=== PATIENT | female | born 1955 | race Caucasian/White ===

== ENCOUNTER 2021-03-18 11:58 | Emergency (ER) | payer MEDICARE ==
[~2021-03-18] VITALS: Ht 152.4 cm; Wt 97.5 kg
[~2021-03-18 11:58] MED LIST: EC-NAPROSYN500 MG PO; METOPROLOL TART25 MG PO
[2021-03-18] MEDS ORDERED: MELOXICAM7.5 MG PO (12:12)
[2021-03-18] MEDS ORDERED: KAPSPARGO SPRI100 MG PO (12:12)
[2021-03-18] MEDS ORDERED: HYDROCHLOROTHIA25 MG PO (12:12)
[2021-03-18] MEDS ORDERED: LIPITOR20 MG GT (12:13)
[2021-03-18] MEDS ORDERED: OSTEO BI-FLEX1 EAC2 PO (12:14)
[2021-03-18] MEDS ORDERED: VITAMIN D3125 MC3 PO (12:14)
[2021-03-18] MEDS ORDERED: HYDROCODON-ACE1 EA10 PO (15:22)
[2021-06-02] MEDS ORDERED: HYDROCHLOROTHIA25 MG PO (16:06)
[2021-06-02] MEDS ORDERED: ESCITALOPRAM OX10 MG PO (16:06)
[2021-06-02] MEDS ORDERED: BOSWELLIA SERRAT1 GM MISC (16:08)
[2021-06-02] MEDS ORDERED: OSTEO BI-FLEX1 EAC2 PO (16:11)
[2021-06-02] MEDS ORDERED: VITAMIN D3125 MCG PO (16:11)
== END 2021-03-18 15:29 | disposition home or self-care (01) ==
LOC: ED 11:58
DX: M54.41 Lumbago with sciatica, right side (principal); I10 Essential (primary) hypertension; Z79.899 Other long term (current) drug therapy
CPT/HCPCS: 96372; 99283; J1885

== ENCOUNTER 2021-06-03 10:19 | Day surgery (SDC) | payer MEDICARE ==
[~2021-06-03] VITALS: Ht 152.4 cm; Wt 105.9 kg
[~2021-06-03 10:19] MED LIST changes: +BOSWELLIA SERRAT1 GM MISC; +ESCITALOPRAM OX10 MG PO; +HYDROCHLOROTHIA25 MG PO; +HYDROCODON-ACE1 EA10 PO; +KAPSPARGO SPRI100 MG PO; +LIPITOR20 MG GT; +MELOXICAM7.5 MG PO; +OSTEO BI-FLEX1 EAC2 PO; +VITAMIN D3125 MC3 PO; +VITAMIN D3125 MCG PO
[2021-06-03] MEDS ORDERED: GLUCOSAMINE &1 EACH PO (10:47)
--- NOTE | 2021-06-03 12:28 | NUR ---
06/03/21 1228 Katerine Oswald 1225 PT ARRIVED TO PACU ON 3L VIA MASK, PT WAKES EASILY TO VERBAL STIMULI AND DENIES PAIN AND NAUSEA. VSS. PT FALLS EASILY BACK TO SLEEP AND SNORING NOTED.
--- NOTE | 2021-06-05 14:59 | PATH ---
[facility] [address] [place] [address] Signed SPECIMEN(S): A BONE MARROW - CORE SPECIMEN(S): B BONE MARROW - ASPIRATION SPECIMEN(S): C FLOW CYTOMETRY, BM EDTA ASP CLINICAL HISTORY: Bone marrow biopsy. 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 See attached. C85.80 (other specified types of non-Hodgkin lymphoma, unspecified site) DIAGNOSIS SUMMARY: A. Peripheral blood - Unremarkable. - No atypical lymphocytes identified. B. Bone marrow biopsy and aspiration: - Normocellular marrow, 35-40%, with 1% blasts. - Trilineage hematopoiesis with no significant dyspoiesis. - No lymphoproliferative neoplasm or other malignancy noted. - Increased marrow iron stores by Prussian Blue stain. DIAGNOSTIC COMMENT: No lymphoproliferative neoplasm or other malignancy is identified by flow cytometry. JLP:C2NR PERIPHERAL BLOOD: HEMOGRAM (06/03/2021): WBC 7.3 K/ul, RBC 3.91 M/ul, HGB 12.2 g/dl, HCT 35.7%, MCV 93.9 fl, MCH 31.3 pg, MCHC 33.3 g/dl, RDW 12.7%, PLT 199 K/ul. AUTOMATED DIFFERENTIAL COUNT: Neutrophils 66.3%, lymphocytes 26.3%, monocytes 4.6%, eosinophils 1.5%, basophils 1.3%. The red blood cells are normocytic and normochromic with minimal anisopoikilocytosis. The neutrophils are unremarkable. Lymphocytes are composed of small mature appearing forms. Platelets appear normal in number and morphology with no platelet clumping or RBC microangiopathic effect identified. No blasts are identified. BONE MARROW: ASPIRATE SMEARS/TOUCH IMPRINT: The aspirate smears are adequate for evaluation. Erythroid precursors appear mildly increased in numbers but show adequate maturation with essentially normal morphology. The myeloid precursors show full maturation with unremarkable morphology. There is no increase in blasts. Megakaryocytes are identified PATIENT NAME: FAYE SWIFT PATHOLOGY DATE OF : 51 REPORT #: [id number] PHYSICIAN: VICKY PATHOLOGY PCP: NO PRIMARY CARE PHYSICIAN REPORT IS CONFIDENTIAL AND NOT TO BE RELEASED WITHOUT AUTHORIZATION [facility] [address] [place], [place] [address] Signed with a normal morphology. BONE MARROW DIFFERENTIAL COUNT (300 cells): Blasts 1%, promyelocytes 1%, myelocytes 8%, metamyelocytes/bands/segs 40%, erythroid precursors 41%, lymphocytes 5%, monocytes 1%, eosinophils 3%, plasma cells less than 1%. M:E ratio: 1.3:1 BONE MARROW CORE BIOPSY/ASPIRATE CLOT/CELL BLOCK: The aspirate clot section and the core biopsy are adequate for evaluation. The core biopsy demonstrates unremarkable trabecular bone. The cellularity is normal for age, estimated at 35-40%. The erythroid precursors are mildly increased in numbers with essentially unremarkable maturation. The myeloid precursors are unremarkable with no significant dyspoiesis. Blasts are not increased. Megakaryocytes appear normal in number and in morphology. No granulomas, atypical lymphoid aggregates or foreign malignant cells are detected. SPECIAL STAINS (with adequate controls): - iron (aspirate smear): Increased marrow iron stores by Prussian Blue staining. No ring sideroblasts identified. - iron (aspirate clot): Focal positive. IMMUNOHISTOCHEMISTRY STAINS (performed on block A1 with adequate controls). - PAX5: 1%, no atypical aggregates. - CD3: 5%, no atypical aggregates. FLOW CYTOMETRY: Bone marrow, flow cytometry: - No diagnostic abnormal populations are identified by flow cytometry. - See Comment. COMMENT: The majority of the gated lymphocytes are T-cells with a normal marking pattern. The B-cells are unremarkable with no light chain restriction or aberrant marking. Blasts are not increased. No aberrant marking is detected in the myeloid or monocyte gate areas. Plasma cells are not increased. Correlation with histologic findings is suggested to exclude disorders that can have normal flow cytometry findings. FLOW CYTOMETRY ANALYSIS: FLOW DIFFERENTIAL (% Total CD45 vs. SSC gating): Myeloid 82%; Lymphoid 7%; Monocyte 2%; Dim CD45/Blast: 1.5%. Cell Count: 5.8 x 10*3/uL. POPULATION ANALYSIS: BLASTS: Analysis of the dim CD45 gate demonstrates 1.5% myeloblasts by CD34/CD117. 0.8% hematogones are detected. PATIENT NAME: FAYE SWIFT PATHOLOGY DATE OF : 51 REPORT #: [id number] PHYSICIAN: VICKY PATHOLOGY PCP: NO PRIMARY CARE PHYSICIAN REPORT IS CONFIDENTIAL AND NOT TO BE RELEASED WITHOUT AUTHORIZATION [facility] [address] [place], [place] [address] Signed LYMPHOID CELLS: The lymphocyte gate comprises 7% of total events and includes 86% T-cells with a CD4:CD8 ratio of 2.9:1 and normal lockhart T-cell antigen expression. 4% of lymphocytes are polyclonal B-cells with a kappa:lambda ratio of 1.5:1. The remainders are NK-cells. MYELOID CELLS: The myeloid population comprises 82% of the total events. No aberrant immunophenotypic expression is detected. MONOCYTES: The monocyte population comprises 2% of the total events. Monocytes are not increased. No aberrant immunophenotypic expression is detected. PLASMA CELLS: 0.4% plasma cells are detected in the screening gate neg-dimCD45/CD38. Plasma cells are CD45 dim and positive for CD19. ANTIBODIES USED: KAPPA, LAMBDA, CD20, CD10, CD19, CD23, CD38, FMC7, CD16, CD56, CD8, CD5, CD2, CD4, CD7, CD3, CD14, CD33, CD13, HLADR, CD34, CD117, CD15, CD45. TOTAL ANTIBODIES USED: 24. JNB FINAL DIAGNOSIS PERFORMED BY: Alexandre Bae MD, Jun 04 2021 3:26PM GROSS DESCRIPTION: Two specimens are received in two containers, labeled "RM." A. The specimen, labeled "RM, core," is received in formalin and consists of one cylindrical bone core fragment measuring 0.3 cm in diameter and 2.4 cm in length. The specimen is entirely submitted in cassette (A1) following decalcification in Immunocal. B. The specimen, labeled "RM, clot," is received in formalin and consists of thickened clot material measuring 1.8 x 1.2 x 0.5 cm in aggregate. The specimen is filtered and entirely submitted in cassette (B1). Bone marrow inventory also includes: Two peripheral smears, one EDTA tube bone marrow, two heparin tubes, ten clear slides. AT (under the direct supervision of a pathologist) The Gross Description was prepared using a voice recognition system. The report was reviewed for accuracy; however, sound-alike word errors, addition and/or deletions may occur. If there is any question about this report, please contact Client Services. ADDITIONAL NOTES: Immunohistochemical and/or in situ hybridization studies were performed on this case with the appropriate positive controls that react as expected. This test was developed and its performance PATIENT NAME: FAYE SWIFT PATHOLOGY DATE OF : 51 REPORT #: [id number] PHYSICIAN: VICKY PATHOLOGY PCP: NO PRIMARY CARE PHYSICIAN REPORT IS CONFIDENTIAL AND NOT TO BE RELEASED WITHOUT AUTHORIZATION [facility] [address] [place], [place] [address] Signed characteristics determined by [facility]. It has not been cleared or approved by the U.S. Food and Drug Administration. The FDA has determined that such clearance or approval is not necessary. This test is used for clinical purposes. It should not be regarded as investigational or for research. [facility] is certified under the Clinical Laboratory Improvement Amendments of 1988 (CLIA) as qualified to perform high complexity clinical laboratory testing. This assay has not been validated for specimens that have been decalcified. In this case, certain antibodies were performed by both immunohistochemistry and flow cytometry analysis because flow cytometry analysis did not fully explain all the light microscopic findings. Immunohistochemistry aided in the analysis. Both methods are deemed medically necessary in this case. This test was developed and its performance characteristics determined by [facility]. It has not been cleared or approved by the US Food and Drug Administration. The FDA does not require this test to go through premarket FDA review. This test is used for clinical purposes. It should not be regarded as investigational or for research. This laboratory is certified under the Clinical Laboratory Improvement Amendments (CLIA) as qualified to perform high complexity clinical laboratory testing. PERFORMING LABORATORY: The technical component was performed by [facility], [address] [place] [address] ([employer] Dr[employer] Operator: Carlos Dutton D.O.; CLIA#: [id number]). [facility], [address] [place] [address]. A portion of the technical component was performed by [facility], [address] [place] [address] ([employer] Operator: Catherine Lau MD; CLIA# [id number]). A portion of the technical component was performed by [facility], [address] [place] [address] ([employer] Operator: Carlos Dutton D.O.; CLIA#: [id number]). Professional interpretation was performed by [facility], [facility], [address] [place] [address]. IMAGES: A: [id number] A: [id number] PATIENT NAME: FAYE SWIFT PATHOLOGY DATE OF : 51 REPORT #: [id number] PHYSICIAN: VICKY PATHOLOGY PCP: NO PRIMARY CARE PHYSICIAN REPORT IS CONFIDENTIAL AND NOT TO BE RELEASED WITHOUT AUTHORIZATION [address] [place] [address] Signed Diagnostician: Alexandre Bae MD Pathologist Electronically Signed 06/05/2021 Copies: ~ PATIENT NAME: FAYE SWIFT PATHOLOGY DATE OF : 51 REPORT #: [id number] PHYSICIAN: VICKY WILKINSON PCP: NO PRIMARY CARE PHYSICIAN REPORT IS CONFIDENTIAL AND NOT TO BE RELEASED WITHOUT AUTHORIZATION
== END 2021-06-03 13:10 | disposition home or self-care (01) ==
LOC: OPS 10:19 → DS 10:21 → OPS 12:00 → DS 12:00 → OPS 13:10
PROVIDERS: ATTEND Specialist
PROC: 07DR3ZX Extraction of Iliac Bone Marrow, Percutaneous Approach, Diagnostic (ICD-10-PCS; principal; 2021-06-03 12:00)
DX: C85.80 Other specified types of non-Hodgkin lymphoma, unspecified site (principal); E78.5 Hyperlipidemia, unspecified; Z20.822 Contact with and (suspected) exposure to COVID-19
CPT/HCPCS: 80053; 83615; 88184; 88185; 88305; 88311; 88313; 88341; 88342; 99153; G0500; J2250; J3010; J7121

== ENCOUNTER 2021-10-08 12:33 | Day surgery (SDC) | payer MEDICARE ==
[~2021-10-08] VITALS: Ht 154.9 cm; Wt 108.0 kg
[~2021-10-08 12:33] MED LIST changes: +GLUCOSAMINE &1 EACH PO
--- NOTE | 2021-10-08 14:39 | NUR ---
warm blanket on and update given. iv patent.
--- NOTE | 2021-10-08 16:20 | NUR ---
10/08/21 1620 Talisha Gao 1613- PT ARRIVES TO PACU AWAKE AND TALKING. PT REPORTS ABD CRAMPING THAT SHE RATES A 5/10. PT ENCOURAGED TO PASS FLATUS TO HELP WITH THIS PAIN. PT STATES UNDERSTANDING. PT DENIES ANY NAUSEA. RESP EVEN AND UNLABORED. OXYGEN SAT MID TO HIGH 90'S ON RA.
--- NOTE | 2021-10-10 15:08 | OR ---
[facility] [address] [place], [place] [address] Signed DATE OF OPERATION: 10/08/2021 SURGEON: Cristal Deleon MD PREOPERATIVE DIAGNOSES: 1. 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 2. Diarrhea, unknown etiology. POSTOPERATIVE DIAGNOSES: 1. Mild diffuse gastritis. No evidence of ulceration. No strict evidence of lymphoma. 2. Mild chronic inflammation of sigmoid and rectum. There was a small polyp at 40 cm (excised). PROCEDURES: 1. Esophagogastroduodenoscopy with biopsy. 2. Total colonoscopy to the cecum with biopsies of rectosigmoid and rectum and cold morcellation, excision of polyp at 40 cm. ANESTHESIA: Intravenous sedation, fentanyl 150 mcg and Versed 6 mg total. INDICATION: This 66-year-old white woman is a patient Dr. Barbour and also Dr. Santizo. She has undergone treatment for marginal cell lymphoma including Rituxan therapy. She is said to have had a gastric lymphoma in the past. She has left upper abdominal pain of uncertain etiology. She has had no hematemesis or blood per rectum. She does have diarrhea, however, as well again without signs of blood. She is admitted at this time to undergo upper endoscopy and colonoscopy to better characterize the problem. FINDINGS: Upper endoscopy dominantly showed a diffuse chronic gastritis. There was no sign of ulceration or neoplasm proper. On colonoscopy, the prep was good. There was dull appearing chronic inflamed sigmoid and rectum, but no acute inflammation and no ulceration or stricture. She did have one small polyp at 40 cm which was excised with cold morcellation technique. DESCRIPTION OF PROCEDURE: The patient was brought to the endoscopy suite and given topical Hurricaine spray hypopharyngeal anesthesia and placed in the lateral decubitus position, given Electronically Signed By: CRISTAL DELEON MD 10/10/21 1508 PATIENT NAME: FAYE SWIFT OPERATIVE REPORT DATE OF : 51 REPORT #: [id number] PHYSICIAN: CRISTAL DELEON MD PCP: KAREN BARBOUR MD REPORT IS CONFIDENTIAL AND NOT TO BE RELEASED WITHOUT AUTHORIZATION [facility] [address] [place], [place] [address] Signed intravenous sedation to the point of slurred speech with full cardiopulmonary monitoring. A bite block was placed. An Olympus video upper endoscope was passed in the hypopharynx. The vocal cords appeared normal. Scope was advanced to the esophagus and into the stomach and ultimately into the duodenum. The duodenum was normal. Biopsies were obtained to assess for celiac disease. The scope was withdrawn and the pylorus was found to be normal. The antrum had chronic inflammatory change. Biopsies were obtained for both NAOMI and pathologic testing. Retroflexed view of the scope showed no sign of dominant hiatal hernia at this time. Proximal gastritis was noted. Narrow band imaging confirmed this quite markedly. Biopsies were taken there as well and CLOtest biopsy was also obtained. Notably, the CLOtest is negative still 30 minutes post procedure. The scope was straightened and withdrawn to the distal esophagus which was biopsied and withdrawn further and the midesophagus biopsied. Further withdrawal showed no other abnormalities. There are certainly no Ramríez's epithelium, stricture, neoplasm or varices. A plan was then made for colonoscopy. Digital rectal examination was undertaken. Additional sedation was given. An Olympus video colonoscope was passed in the rectum and manipulated throughout the colon ultimately intubating the cecum itself. The ileocecal valve and appendiceal orifice were normal. Scope was withdrawn from that point and examination showed no sign of abnormality until approximately 40 cm from the anal verge, where a very small adenomatous appearing polyp was noted, this was excised with a single biopsy morcellating device. Further withdrawal of the scope showed the dull vascular free appearance of the sigmoid and left colon. Biopsies were obtained of both the sigmoid and the rectum to assess for chronic colitis. Retroflexed view showed no other findings of concern. The scope was removed and the patient was taken to the recovery room in good condition. CONCLUDING DIAGNOSES: 1. Diffuse gastritis. 2. Small polyp of colon and mild chronic sigmoid and rectal inflammation. PLAN: We will prescribe PPI medication, Prilosec as well as Carafate and see the patient back in 4 to 6 weeks. If she has problems in the meantime, she will let me know. She will return also to the ongoing care of Dr. Karen Barbour and Dr. Raymond Santizo. Electronically Signed By: CRISTAL DELEON MD 10/10/21 1508 PATIENT NAME: FAYE SWIFT OPERATIVE REPORT DATE OF : 51 REPORT #: [id number] PHYSICIAN: CRISTAL DELEON MD PCP: KAREN BARBOUR MD REPORT IS CONFIDENTIAL AND NOT TO BE RELEASED WITHOUT AUTHORIZATION [address] [address] Signed Cristal Deleon MD JM/MODL /[id number] cc: MD Dr. Karen Rajan Copies: RAYMOND SANTIZO MD ~ Electronically Signed By: CRISTAL DELEON MD 10/10/21 1508 PATIENT NAME: FAYE SWIFT OPERATIVE REPORT DATE OF : 51 REPORT #: [id number] PHYSICIAN: CRISTAL DELEON MD PCP: KAREN BARBOUR MD REPORT IS CONFIDENTIAL AND NOT TO BE RELEASED WITHOUT AUTHORIZATION
--- NOTE | 2021-10-13 13:15 | PATH ---
[facility] [address] [place], [place] [address] Signed THIS IS AN ADDENDUM REPORT SPECIMEN(S): A POLYP AT 40 CM SPECIMEN(S): B SIGMOID BIOPSY SPECIMEN(S): C RECTAL BIOPSY SPECIMEN(S): D DUODENAL BIOPSY SPECIMEN(S): E ANTRUM/PYLORUS BIOPSY SPECIMEN(S): F PROXIMAL STOMACH BIOPSY SPECIMEN(S): G DISTAL ESOPHAGEAL BIOPSY SPECIMEN(S): H MID ESOPHAGEAL BIOPSY SPECIMEN SOURCE: A. POLYP AT 40 CM B. SIGMOID BIOPSY C. RECTAL BIOPSY D. DUODENAL BIOPSY E. ANTRUM/PYLORUS BIOPSY F. PROXIMAL STOMACH BIOPSY G. DISTAL ESOPHAGEAL BIOPSY H. MID ESOPHAGEAL BIOPSY CLINICAL HISTORY: Post: Polyp x 1; chronic inflammation of sigmoid and rectum FINAL PATHOLOGIC DIAGNOSIS: A. Colon, 40 cm, polypectomy: - Tubular adenoma. B. Colon, sigmoid, biopsy: - Colonic mucosa with chronic active colitis. C. Rectum, biopsy: - Colonic mucosa with chronic focally active colitis. D. Duodenum, biopsy: - Duodenal mucosa with no significant pathologic changes. E. Colon, antrum/pylorus, biopsy: - Gastric antral mucosa with chronic inactive gastritis. - Negative for Helicobacter pylori with HE stains, see comment. F. Stomach, proximal, biopsy: - Gastric oxyntic mucosa with chronic inactive gastritis. - Negative for Helicobacter pylori with HE stains. G. Esophagus, distal, biopsy: - Squamoglandular mucosa with no significant pathologic changes. PATIENT NAME: FAYE SWIFT PATHOLOGY DATE OF : 51 REPORT #: [id number] PHYSICIAN: VICKY WILKINSON PCP: CASI BARBOUR MD REPORT IS CONFIDENTIAL AND NOT TO BE RELEASED WITHOUT AUTHORIZATION [facility] [address] [place], [place] [address] Signed H. Esophagus, mid, biopsy: - Esophageal squamous mucosa with no significant pathologic changes. COMMENT: B,C. No dysplasia, granulomas, or viral cytopathic changes are seen. E. An immunohistochemical stain for Helicobacter pylori has been ordered and will be reported in an addendum. BRP:cml:C2NR MICROSCOPIC EXAMINATION: Histologic sections of all submitted blocks are examined by light microscopy. These findings, together with the gross examination, support the pathologic diagnosis. GROSS DESCRIPTION: Eight specimens are received in eight containers, labeled "RM." A. The specimen, labeled "RM, A," and designated on the requisition "polypectomy 40 cm," is received in formalin and consists of one cheng soft tissue fragment that measures 0.4 cm in greatest dimension. The specimen is entirely submitted in cassette (A1). B. The specimen, labeled "RM, B," and designated on the requisition "sigmoid biopsy," is received in formalin and consists of three cheng soft tissue fragments that measure 0.2 up to 0.3 cm in greatest dimension. The specimen is entirely submitted in cassette (B1). C. The specimen, labeled "RM, C," and designated on the requisition "rectum biopsy," is received in formalin and consists of two cheng soft tissue fragments that measure 0.2 cm in greatest dimension. The specimen is entirely submitted in cassette (C1). D. The specimen, labeled "RM, D," and designated on the requisition "duodenum biopsy," is received in formalin and consists of two cheng soft tissue fragments that measure 0.4 cm in greatest dimension. The specimen is entirely submitted in cassette (D1). E. The specimen, labeled "RM, E," and designated on the requisition "antrum/pylorus biopsy," is received in formalin and consists of two cheng soft tissue fragments that measure 0.2 and 0.6 cm in greatest dimension. The specimen is entirely submitted in cassette (E1). F. The specimen, labeled "RM, F," and designated on the requisition "proximal stomach biopsy," is received in formalin and consists of one cheng soft tissue fragment that measures 0.3 cm in greatest dimension. The specimen is entirely submitted in cassette (F1). G. The specimen, labeled "RM, G," and designated on the requisition "distal PATIENT NAME: FAYE SWIFT PATHOLOGY DATE OF : 51 REPORT #: [id number] PHYSICIAN: VICKY WILKINSON PCP: CASI BARBOUR MD REPORT IS CONFIDENTIAL AND NOT TO BE RELEASED WITHOUT AUTHORIZATION [facility] [address] [place] [address] Signed esophagus biopsy," is received in formalin and consists of three cheng-white soft tissue fragments that measure 0.2 to 0.4 cm in greatest dimension. The specimen is entirely submitted in cassette (G1). H. The specimen, labeled "RN, H," and designated on the requisition "mid esophagus," is received in formalin and consists of one elongated, cheng-white soft tissue fragment that measures 0.6 cm in greatest dimension. The specimen is entirely submitted in cassette (H1). AI (under the direct supervision of a pathologist) The Gross Description was prepared using a voice recognition system. The report was reviewed for accuracy; however, sound-alike word errors, addition and/or deletions may occur. If there is any question about this report, please contact Client Services. PERFORMING LABORATORY: The technical component was performed by [facility], [address] [place] [address] ([employer]crew Foreman: Catherine Lau MD; CLIA# [id number]). [facility] by [facility], [address] [address] (CLIA# [id number]). ADDITIONAL NOTES: Immunohistochemical and/or in situ hybridization studies were performed on this case with the appropriate positive controls that react as expected. This test was developed and its performance characteristics determined by [facility]. It has not been cleared or approved by the U.S. Food and Drug Administration. The FDA has determined that such clearance or approval is not necessary. This test is used for clinical purposes. It should not be regarded as investigational or for research. [facility] is certified under the Clinical Laboratory Improvement Amendments of 1988 (CLIA) as qualified to perform high complexity clinical laboratory testing. This assay has not been validated for specimens that have been decalcified. PERFORMING LABORATORY: The technical component was performed by [facility], [address] [place] [address] ([employer] Foreman: Catherine Lau MD; CLIA# [id number]). [facility] by [facility], [address] [address] (CLIA# [id number]). PATIENT NAME: FAYE SWIFT PATHOLOGY DATE OF : 51 REPORT #: [id number] PHYSICIAN: VICKY PATHOLOGY PCP: CASI BARBOUR MD REPORT IS CONFIDENTIAL AND NOT TO BE RELEASED WITHOUT AUTHORIZATION [facility] [address] [place], [place] [address], [place] [address] Signed REASON FOR ADDENDUM: To add results of additional testing. ADDENDUM COMMENT: Regarding part E, an immunohistochemical stain for Helicobacter pylori is negative. The above interpretation is unchanged. BRP:[facility] Diagnostician: Eduin Fuentes MD Pathologist Electronically Signed 10/13/2021 Copies: ~ PATIENT NAME: FAYE SWIFT PATHOLOGY DATE OF : 51 REPORT #: [id number] PHYSICIAN: VICKY PATHOLOGY PCP: CASI BARBOUR MD REPORT IS CONFIDENTIAL AND NOT TO BE RELEASED WITHOUT AUTHORIZATION
== END 2021-10-08 16:50 | disposition home or self-care (01) ==
LOC: OPS 12:33 → DS 12:33 → OPS 14:00
PROVIDERS: ATTEND Surgery
PROC: 0DB68ZX Excision of Stomach, Via Natural or Artificial Opening Endoscopic, Diagnostic (ICD-10-PCS; 2021-10-08)
PROC: 0DB28ZX Excision of Middle Esophagus, Via Natural or Artificial Opening Endoscopic, Diagnostic (ICD-10-PCS; 2021-10-08)
PROC: 0DB38ZX Excision of Lower Esophagus, Via Natural or Artificial Opening Endoscopic, Diagnostic (ICD-10-PCS; 2021-10-08)
PROC: 0DBP8ZX Excision of Rectum, Via Natural or Artificial Opening Endoscopic, Diagnostic (ICD-10-PCS; 2021-10-08)
PROC: 0DBE8ZX Excision of Large Intestine, Via Natural or Artificial Opening Endoscopic, Diagnostic (ICD-10-PCS; 2021-10-08)
PROC: 0DBN8ZX Excision of Sigmoid Colon, Via Natural or Artificial Opening Endoscopic, Diagnostic (ICD-10-PCS; 2021-10-08)
PROC: 0DB98ZX Excision of Duodenum, Via Natural or Artificial Opening Endoscopic, Diagnostic (ICD-10-PCS; principal; 2021-10-08 14:00)
PROC: 0DB78ZX Excision of Stomach, Pylorus, Via Natural or Artificial Opening Endoscopic, Diagnostic (ICD-10-PCS; 2021-10-08 14:00)
DX: K52.9 Noninfective gastroenteritis and colitis, unspecified (principal); K29.50 Unspecified chronic gastritis without bleeding; D12.6 Benign neoplasm of colon, unspecified; I10 Essential (primary) hypertension; Z85.72 Personal history of non-Hodgkin lymphomas; Z79.899 Other long term (current) drug therapy
CPT/HCPCS: 99153; G0500; J2250; J3010; J7121

== ENCOUNTER 2023-06-20 12:40 | Day surgery (SDC) | payer MEDICARE, MEDICAID ==
[~2023-06-20] VITALS: Ht 152.4 cm; Wt 106.8 kg
[~2023-06-20 12:40] MED LIST changes: +NABUMETONE750 MG PO; +OMEPRAZOLE20 MG PO
[2023-06-20 12:56] VITALS: BP 148/58
[2023-06-20] MEDS ORDERED: SUCRALFATE1 GM PO (12:59)
[2023-06-20] MEDS ORDERED: LATANOPROST2.5 ML OU (13:02)
[2023-06-20] MEDS ORDERED: BRIMONIDINE-TIMO5 ML OD (13:02)
--- NOTE | 2023-06-20 15:12 | NUR ---
06/20/23 1512 Gwendolyn Sanchez 1504- PT ARRIVES TO PACU, REACTIVE TO VERBAL STIMULI. PT REORIENTED TO PLACE AND TIME. LR INFUSING TO RH IV. ALL MONITORS APPLIED. ABD SOFT, NON DISTENDED, ENCOURAGED TO PASS GAS. WILL CONTINUE TO MONITOR PT.
[2023-06-20 15:46] VITALS: BP 129/61
--- NOTE | 2023-06-23 10:42 | OR ---
[facility] [address] [place], [place] [address] Signed DATE OF OPERATION: 06/20/2023 SURGEON: Cristal Deleon MD PREOPERATIVE DIAGNOSES: 1. History of gastric lymphoma. 2. Diarrhea and abdominal bloating. POSTOPERATIVE DIAGNOSES: 1. Normal upper endoscopy. 2. Diverticulosis of colon. PROCEDURE: 1. Esophagogastroduodenoscopy with biopsy. 2. Total colonoscopy with biopsy. ANESTHESIA: Intravenous sedation fentanyl 150 mcg, Versed 9 mg total. INDICATION: This is a 68-year-old white woman is a patient Dr. Barbour and Dr. Santizo. She suffered gastric lymphoma in the past and was treated with Rituxan with good clinical result. She last underwent upper endoscopy and colonoscopy in 2020 where she had inflammation of the rectum and sigmoid also had reflux, which was managed with PPI medication and sucralfate. She has no clinical evidence of lymphoma at this time. She is admitted to undergo upper endoscopy and colonoscopy on the basis of her prior history of gastric lymphoma, as well as current issues of diarrhea. She understands risk of bleeding, infection, and perforation and wished to proceed. FINDINGS: Upper endoscopy was essentially normal. There was no evidence of gastric lymphoma, esophagitis, or other issue. She had a somewhat poor flap valve. CLOtest was negative. On colonoscopy, the prep was good. There were scattered diverticula of the sigmoid, but no signs of colitis or other abnormality. PROCEDURE: The patient was brought to the endoscopy suite and placed in lateral decubitus position given intravenous sedation to the point of slurred speech and nystagmus. Hypopharyngeal anesthesia was administered as well with lidocaine spray. A bite block was placed. Electronically Signed By: CRISTAL DELEON MD 06/23/23 1042 PATIENT NAME: FAYE SWIFT OPERATIVE REPORT DATE OF : 51 REPORT #: [id number] PHYSICIAN: CRISTAL DELEON MD PCP: CASI BARBOUR MD REPORT IS CONFIDENTIAL AND NOT TO BE RELEASED WITHOUT AUTHORIZATION [facility] [address] [place], [place] [address] Signed An Olympus video upper endoscope was passed in the hypopharynx. The vocal cords appeared normal. The scope was advanced to the esophagus without problem throughout its length it was normal. The scope was carefully passed to the stomach, which was insufflated with air. Rugal folds were normal as was the antrum. The scope was passed through the pylorus into the normal-appearing duodenum, biopsies were obtained. Scope was withdrawn and biopsies were then taken of the distal stomach (antrum) and subsequently the body of the stomach and CLOtest biopsies taken as well. Retroflexed view showed a marginal flap valve, but no sign of large hiatal hernia. Scope was withdrawn. A biopsy was taken of a normal esophagus in the mid and distal portions. Plans were then made for colonoscopy. Additional sedation was given. Digital rectal examination was performed, which was normal. An Olympus video colonoscope was passed in the rectum and manipulated throughout the colon ultimately intubating the cecum itself. The ileocecal valve and appendiceal orifice were normal. Numerous diverticula were seen in the sigmoid and left colon. The scope was withdrawn from that point. Examination throughout showed no sign of abnormality. Diverticular changes were noted. Retroflexed view was normal as well. The scope was removed and the patient was taken to the recovery room in good condition having suffered no complication. CONCLUDING DIAGNOSES: 1. Normal-appearing stomach. No evidence of recurrent or persistent gastric lymphoma. CLOtest negative at 30 minutes post procedure. 2. Normal-appearing colon except for diverticulosis. PLAN: We would recommend continued use of PPI medication and Carafate for her symptoms. As regards colon, if diarrhea persists to let me know at which point symptomatic control only be initiated. Cristal Deleon MD JM/MODL /[id number] cc: Dr. Barbour Electronically Signed By: CRISTAL DELEON MD 06/23/23 1042 PATIENT NAME: FAYE SWIFT OPERATIVE REPORT DATE OF : 51 REPORT #: [id number] PHYSICIAN: CRISTAL DELEON MD PCP: CASI BARBOUR MD REPORT IS CONFIDENTIAL AND NOT TO BE RELEASED WITHOUT AUTHORIZATION [address] [address] Signed Raymond Santizo MD Copies: RAYMOND SANTIZO MD ~ Electronically Signed By: CRISTAL DELEON MD 06/23/23 1042 PATIENT NAME: JENIFFERFAYETODD ACEVEDO OPERATIVE REPORT DATE OF : 51 REPORT #: [id number] PHYSICIAN: CRISTAL DELEON MD PCP: CASI BARBOUR MD REPORT IS CONFIDENTIAL AND NOT TO BE RELEASED WITHOUT AUTHORIZATION
--- NOTE | 2023-06-23 16:58 | PATH ---
[facility] [address] [place], [place] [address] Signed SPECIMEN(S): A DUODENAL BIOPSY (NOS) SPECIMEN(S): B DUODENAL BULB BIOPSY SPECIMEN(S): C ANTRUM BIOPSY SPECIMEN(S): D UPPER STOMACH BIOPSY SPECIMEN(S): E DISTAL ESOPHAGEAL BIOPSY SPECIMEN(S): F MID ESOPHAGEAL BIOPSY SPECIMEN SOURCE: A. DUODENAL BIOPSY (NOS) B. DUODENAL BULB BIOPSY C. ANTRUM BIOPSY D. UPPER STOMACH BIOPSY E. DISTAL ESOPHAGEAL BIOPSY F. MID ESOPHAGEAL BIOPSY CLINICAL HISTORY: Colonoscopy. Pre: Reflux, diarrhea, colitis. Post: Normal EGD, diverticulosis. FINAL PATHOLOGIC DIAGNOSIS: A. Duodenal biopsy: - Benign duodenal mucosa, negative for specific diagnostic abnormality. B. Duodenal bulb biopsy: - Benign duodenal mucosa, negative for specific diagnostic abnormality. C. Antrum biopsy: - Benign gastric-type mucosa with focal slight chronic inflammation. - Negative for evidence of Helicobacter organisms on routine HE-stained sections. D. Upper stomach biopsy: - Benign gastric fundic-type mucosa with focal mild chronic gastritis. - Helicobacter pylori immunostain is negative for organisms. E. Distal esophageal biopsy: - Benign esophageal epithelium, negative for increased epithelial eosinophils. - Negative for glandular mucosa. F. Mid esophageal biopsy: - Benign esophageal mucosa, negative for increased epithelial eosinophils. JVR:cox [place] lawn MICROSCOPIC EXAMINATION: Histologic sections of all submitted blocks are examined by light microscopy. These findings, together with the gross examination, support the pathologic PATIENT NAME: FAYE SWIFT PATHOLOGY DATE OF : 51 REPORT #: [id number] PHYSICIAN: VICKY PATHOLOGY PCP: CASI BARBOUR MD REPORT IS CONFIDENTIAL AND NOT TO BE RELEASED WITHOUT AUTHORIZATION [facility] [address] [place], [place] [address] Signed diagnosis. A Helicobacter pylori immunostain is performed with appropriate positive and negative controls on block (D1) and is negative for organisms. JVR:cox [place] lawn GROSS DESCRIPTION: A. The specimen, labeled and designated "Chad, duodenum biopsy," is received in formalin and consists of two cheng soft tissue fragments, ranging from 0.2 cm. Entirely submitted in (A1). B. The specimen, labeled and designated "Chad, duodenal bulb biopsy," is received in formalin and consists of three cheng soft tissue fragments, ranging from 0.1-0.2 cm. Entirely submitted in (B1). C. The specimen, labeled and designated "Chad, antrum biopsy," is received in formalin and consists of three cheng soft tissue fragments, ranging from 0.1-0.2 cm. Entirely submitted in (C1). D. The specimen, labeled and designated "Chad, upper stomach biopsy," is received in formalin and consists of four cheng soft tissue fragments, ranging from 0.1-0.2 cm. Entirely submitted in (D1). E. The specimen, labeled and designated "Chad, distal esophagus biopsy," is received in formalin and consists of three cheng soft tissue fragments, ranging from 0.2-0.3 cm. Entirely submitted in (E1). F. The specimen, labeled and designated "Chad, mid esophagus biopsy," is received in formalin and consists of two cheng soft tissue fragments, ranging from 0.2-0.3 cm. Entirely submitted in (F1). JS (under the direct supervision of a pathologist) The Gross Description was prepared using a voice recognition system. The report was reviewed for accuracy; however, sound-alike word errors, addition and/or deletions may occur. If there is any question about this report, please contact Client Services. ADDITIONAL NOTES: Immunohistochemical and/or in situ hybridization studies were performed on this case with the appropriate positive controls that react as expected. This test was developed and its performance characteristics determined by [facility]. It has not been cleared or approved by the U.S. Food and Drug Administration. The FDA has determined that such clearance or approval is not necessary. This test is used for clinical purposes. It should not be regarded as investigational or for research. [facility] is certified under the Clinical Laboratory Improvement PATIENT NAME: FAYE SWIFT PATHOLOGY DATE OF : 51 REPORT #: [id number] PHYSICIAN: VICKY WILKINSON PCP: CASI BARBOUR MD REPORT IS CONFIDENTIAL AND NOT TO BE RELEASED WITHOUT AUTHORIZATION [facility] [address] [place] [id number] Signed Amendments of 1988 (CLIA) as qualified to perform high complexity clinical laboratory testing. This assay has not been validated for specimens that have been decalcified. PERFORMING LABORATORY: Technical component was performed by [facility], [address] [place] [id number] (CLIA# [id number]). Professional interpretation was performed by [facility], [address] [place] [address] Ave[address] [place] [address] (CLIA#: [id number]). Diagnostician: Aditya Thomas MD Pathologist Electronically Signed 06/23/2023 Copies: ~ PATIENT NAME: FAYE SWIFT PATHOLOGY DATE OF : 51 REPORT #: [id number] PHYSICIAN: VICKY PATHOLOGY PCP: CASI BARBOUR MD REPORT IS CONFIDENTIAL AND NOT TO BE RELEASED WITHOUT AUTHORIZATION
== END 2023-06-20 16:07 | disposition home or self-care (01) ==
LOC: OPS 12:40 → DS 12:43 → OPS 14:00 → DS 14:00 → OPS 16:07
PROVIDERS: ATTEND Surgery
PROC: 0DB58ZX Excision of Esophagus, Via Natural or Artificial Opening Endoscopic, Diagnostic (ICD-10-PCS; 2023-06-20)
PROC: 0DJD8ZZ Inspection of Lower Intestinal Tract, Via Natural or Artificial Opening Endoscopic (ICD-10-PCS; 2023-06-20)
PROC: 0DB98ZX Excision of Duodenum, Via Natural or Artificial Opening Endoscopic, Diagnostic (ICD-10-PCS; principal; 2023-06-20 14:00)
PROC: 0DB68ZX Excision of Stomach, Via Natural or Artificial Opening Endoscopic, Diagnostic (ICD-10-PCS; 2023-06-20 14:00)
DX: K29.50 Unspecified chronic gastritis without bleeding (principal); K57.30 Diverticulosis of large intestine without perforation or abscess without bleeding; E66.9 Obesity, unspecified
CPT/HCPCS: 88305; 88342; 99153; G0500; J2250; J3010; J7121

== ENCOUNTER 2024-05-22 10:51 | Day surgery (SDC) | payer MEDICARE, OTHER ==
[~2024-05-22] VITALS: Ht 304.8 cm; Wt 112.2 kg
[~2024-05-22 10:51] MED LIST changes: +BRIMONIDINE-TIMO5 ML OD; +IBLOOD GLUCOSE TEST STRIP 1 EA TEST VI PRN; +LACTATED RINGER'S 1,000 ML IV SCH; +LATANOPROST2.5 ML OU; +LIDOCAINE HCL 1% 5 ML SDV INJ ONE; +LIDOCAINE HCL 4% 50 ML BTL TOP SCH; +SUCRALFATE1 GM PO
[2024-05-22 11:29] VITALS: BP 156/66
[2024-05-22] MEDS ORDERED: fentaNYL citrate 100 MCG/2 ML VIAL ONE (11:38)
[2024-05-22] MEDS ORDERED: MIDAZOLAM HCL 5 MG/5 ML VIAL ONE (11:38)
--- NOTE | 2024-05-22 13:03 | NUR ---
05/22/24 1303 Sheets,Katerine 1251 PT ARRIVED TO PACU ON 3L VIA MASK, PT WAKES EASILY AND DENIES CONCERNS. VSS AND PT DENIES PAIN AND NAUSEA.
[2024-05-22 13:17] VITALS: BP 157/68
--- NOTE | 2024-05-24 11:49 | OR ---
[facility] [facility] [address] [place], [place] [address] Signed DATE OF OPERATION: 05/22/2024 SURGEON: Cristal Deleon MD PREOPERATIVE DIAGNOSIS: History of gastric lymphoma status post chemotherapy; surveillance upper endoscopy 06/20/2023, normal. POSTOPERATIVE DIAGNOSIS: Mild diffuse gastritis. CLOtest negative. PROCEDURE: Esophagogastroduodenoscopy with biopsy. ANESTHESIA: Intravenous sedation; fentanyl 100 mcg and Versed 4 mg. INDICATION: This 68-year-old white woman is a patient of Dr. Barbour and Dr. Santizo. 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 She is generally symptom-free currently. She takes omeprazole on a daily basis. Surveillance upper endoscopy by tn on June 20, 2023, one year ago showed no evidence of recurrent lymphoma, no evidence of H pylori. She is generally symptom-free at this time and is here upon referral from Dr. Santizo for surveillance upper endoscopy. She understands risk of bleeding, infection, and perforation related to upper endoscopy and wished to proceed. FINDINGS: Esophagus and duodenum were normal. There was mild diffuse gastritis of the stomach, which appeared more than last year. There was no neoplasm proper. Biopsies were performed and CLOtest was noted to be negative 20 minutes post procedure. PROCEDURE IN DETAIL: The patient was brought to the endoscopy suite and given lidocaine hypopharyngeal anesthesia and placed in the lateral decubitus position, given intravenous sedation to the point of slurred speech and nystagmus. A bite block was placed. Olympus video upper endoscope was passed in the hypopharynx. The vocal cords were normal. Scope was advanced into the esophagus, throughout its length it was normal. Scope was passed to the stomach which was insufflated with air. There was mild diffuse gastritis but no sign of neoplastic process or ulceration. The pylorus was normal. Scope was passed Electronically Signed By: CRISTAL DELEON MD 05/24/24 1149 PATIENT NAME: FAYE SWIFT OPERATIVE REPORT DATE OF : 51 REPORT #: [id number] PHYSICIAN: CRISTAL DELEON MD PCP: CASI BARBOUR MD REPORT IS CONFIDENTIAL AND NOT TO BE RELEASED WITHOUT AUTHORIZATION [facility] [address] [place], [place] [address] Signed through into the duodenum, which was normal. Biopsies were taken of the duodenum and subsequently the antrum, midportion and upper part of the stomach and CLOtest biopsy was obtained as well. The scope was withdrawn to the distal esophagus and biopsies were taken there, though the esophagus was normal. Careful withdrawal of the scope showed no other findings. The scope was removed and the patient was taken to the recovery room in good condition. CONCLUDING DIAGNOSIS: Mild diffuse gastritis. No evidence of H pylori thus far on CLOtest. PLAN: We will await pathology reports. If normal, will consider for repeat upper endoscopy one year per the request of Dr. Santizo, her oncologist. I would recommend continued use of omeprazole at this point. She will return to the ongoing care of Dr. Santizo and Dr. Barbour. Cristal Deleon MD JM/MODL /[id number] cc: Dr. Aram Santizo MD Copies: RAYMOND SANTIZO MD ~ Electronically Signed By: CRISTAL DELEON MD 05/24/24 1149 PATIENT NAME: FAYE SWIFT OPERATIVE REPORT DATE OF : 51 REPORT #: [id number] PHYSICIAN: CRISTAL DELEON MD PCP: CASI BARBOUR MD REPORT IS CONFIDENTIAL AND NOT TO BE RELEASED WITHOUT AUTHORIZATION
--- NOTE | 2024-05-24 16:05 | PATH ---
[facility] [address] [place], [place] [address] Signed SPECIMEN(S): A ANTRUM BIOPSY SPECIMEN(S): B DUODENAL BIOPSY SPECIMEN(S): C PROXIMAL STOMACH BIOPSY SPECIMEN(S): D DISTAL ESOPHAGEAL BIOPSY SPECIMEN SOURCE: A. ANTRUM BIOPSY B. DUODENAL BIOPSY C. PROXIMAL STOMACH BIOPSY D. 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 Postop: Diffuse gastritis. FINAL PATHOLOGIC DIAGNOSIS: A. Antrum, biopsies: - Mild chronic antral gastritis with intestinal metaplasia, negative for active inflammation or lymphoproliferative disorder. See comment. B. Duodenum, biopsies: - Mild chronic duodenitis, negative for active inflammation or significant villous blunting. C. Proximal stomach, biopsies: - Mild chronic gastritis with vascular congestion, negative for active inflammation or lymphoproliferative disorder. D. Distal esophagus, biopsies: - Benign squamous esophageal mucosa, negative for esophagitis, increased eosinophils or Ramírez's metaplasia. COMMENT: The patient's history of MALT lymphoma is noted. AMB MICROSCOPIC EXAMINATION: Histologic sections of all submitted blocks are examined by light microscopy. These findings, together with the gross examination, support the pathologic diagnosis. GROSS DESCRIPTION: A. The specimen, labeled and designated "Chad antrum biopsy," is received in formalin and consists of two cheng soft tissue fragments, ranging from 0.2-0.3 cm. Entirely submitted in (A1). PATIENT NAME: FAYE SWIFT PATHOLOGY DATE OF : 51 REPORT #: [id number] PHYSICIAN: [facility] PCP: CASI BARBOUR MD REPORT IS CONFIDENTIAL AND NOT TO BE RELEASED WITHOUT AUTHORIZATION [facility] [address] [place], [place] [address] Signed B. The specimen, labeled and designated "Chad, duodenal biopsy," is received in formalin and consists of three cheng soft tissue fragments, ranging from 0.1-0.2 cm. Entirely submitted in (B1). C. The specimen, labeled and designated "Chad, proximal stomach biopsy," is received in formalin and consists of two cheng soft tissue fragments, ranging from 0.2-0.3 cm. Entirely submitted in (C1). D. The specimen, labeled and designated "Chad, distal esophageal biopsy," is received in formalin and consists of two cheng soft tissue fragments, ranging from 0.3-0.5 cm. Entirely submitted in (D1). VB (under the direct supervision of a pathologist) The Gross Description was prepared using a voice recognition system. The report was reviewed for accuracy; however, sound-alike word errors, addition and/or deletions may occur. If there is any question about this report, please contact Client Services. ADDITIONAL NOTES: Immunohistochemical and/or in situ hybridization studies if performed in this case included appropriate positive controls that reacted as expected. This test was developed and its performance characteristics determined by [facility]. It has not been cleared or approved by the U.S. Food and Drug Administration. The FDA has determined that such clearance or approval is not necessary. This test is used for clinical purposes. It should not be regarded as investigational or for research. [facility] is certified under the Clinical Laboratory Improvement Amendments of 1988 (CLIA) as qualified to perform high complexity clinical laboratory testing. PERFORMING LABORATORY: Technical component was performed by [facility], [address] [place] [address] (CLIA# [id number]). Professional interpretation was performed by [facility] [address] [facility] [facility] [address] [id number] Diagnostician: Catherine Lau MD Pathologist Electronically Signed 05/24/2024 PATIENT NAME: FAYE SWIFT PATHOLOGY DATE OF : 51 REPORT #: [id number] PHYSICIAN: MARCO WILKINSON PCP: ACSI BARBOUR MD REPORT IS CONFIDENTIAL AND NOT TO BE RELEASED WITHOUT AUTHORIZATION [address] [address] Signed Copies: ~ PATIENT NAME: FAYE SWIFT PATHOLOGY DATE OF : 51 REPORT #: [id number] PHYSICIAN: [facility] PCP: CASI BARBOUR MD REPORT IS CONFIDENTIAL AND NOT TO BE RELEASED WITHOUT AUTHORIZATION
== END 2024-05-22 15:00 | disposition home or self-care (01) ==
LOC: DS 10:51
PROVIDERS: ATTEND Surgery
PROC: 0DB58ZX Excision of Esophagus, Via Natural or Artificial Opening Endoscopic, Diagnostic (ICD-10-PCS; 2024-05-22)
PROC: 0DB98ZX Excision of Duodenum, Via Natural or Artificial Opening Endoscopic, Diagnostic (ICD-10-PCS; principal; 2024-05-22 12:15)
DX: K29.50 Unspecified chronic gastritis without bleeding (principal); K29.80 Duodenitis without bleeding; Z85.028 Personal history of other malignant neoplasm of stomach; Z92.21 Personal history of antineoplastic chemotherapy; E66.9 Obesity, unspecified; I10 Essential (primary) hypertension; Z68.42 Body mass index [BMI] 45.0-49.9, adult
CPT/HCPCS: 99153; G0500; J2250; J3010

== ENCOUNTER 2025-05-23 10:32 | Day surgery (SDC) | payer MEDICARE, OTHER ==
[~2025-05-23] VITALS: Ht 304.8 cm; Wt 121.3 kg
[~2025-05-23 10:32] MED LIST changes: -LIPITOR20 MG GT; +LIPITOR20 MG PO; +MIDAZOLAM HCL 5 MG/5 ML VIAL IV PRN; +fentaNYL citrate 100 MCG/2 ML VIAL IV PRN
[2025-05-23 11:05] VITALS: BP 149/69
[2025-05-23] MEDS ORDERED: MIDAZOLAM HCL 5 MG/5 ML VIAL ONE (11:24)
[2025-05-23] MEDS ORDERED: fentaNYL citrate 100 MCG/2 ML VIAL ONE (11:24)
[2025-05-23 12:18] VITALS: BP 121/95
--- NOTE | 2025-05-23 17:17 | NUR ---
05/23/25 1717 Darek,Katerine 1154 PT ARRIVED TO PACU ON 2L NC, PT IS ASLEEP AND EASILY WAKES TO VERBAL STIMULI. VSS. 1202 MD AT BEDSIDE TALKING TO PT. 1209 O2 REMOVED AND HOB INCREASED, PT SIPPING JUICE PER REQUEST. DC INSTRUCTIONS GIVEN. 1225 PT DRESSED HERSELF AND ALL QUESTIONS ANSWERED. PT DC WITH PAPERWORK AND WITH ALL HER BELONGINGS TO HER SISTER.
--- NOTE | 2025-05-27 13:44 | OR ---
[facility] [address] [place], [place] [address] Signed DATE OF OPERATION: 05/23/2025 SURGEON: Cristal Deleon MD PREOPERATIVE DIAGNOSIS: History of MALT lymphoma, surveillance upper endoscopy. POSTOPERATIVE DIAGNOSIS: Normal-appearing esophagus, stomach and duodenum. PROCEDURE: Esophagogastroduodenoscopy with biopsy. ANESTHESIA: Intravenous sedation fentanyl 100 mcg and Versed 4 mg. INDICATION: This 69-year-old white woman is a patient of Dr. Karen Barbour as well as Dr. Raymond Santizo and has undergone diagnosis and treatment for a MALT lymphoma in the past few years. She is currently asymptomatic and takes PPI medication, omeprazole and Carafate on a daily basis. She is referred for surveillance upper endoscopy related to her MALT lymphoma. She understands the risk of upper endoscopy including but not limited to bleeding, infection, and perforation and wished to proceed. FINDINGS: Esophagus, stomach and duodenum were normal. CLOtest was negative 20 minutes post procedure. There was no evidence of ulceration, neoplasm, or other problem. The esophagus was reasonably good and the flap valve was reasonable as well. DESCRIPTION OF PROCEDURE: The patient was brought to the endoscopy suite and placed in lateral decubitus position, given intravenous sedation to the point of slurred speech and nystagmus with full cardiopulmonary monitoring. Lidocaine hypopharyngeal anesthesia had been administered previously. A bite block was placed. The Olympus video upper endoscope was passed in the hypopharynx. The vocal cords appeared normal. An Olympus video upper endoscope was passed in the hypopharynx. The vocal cords appeared normal. Scope was easily passed in the esophagus throughout its Electronically Signed By: CRISTAL DELEON MD 05/27/25 1344 PATIENT NAME: FAYE FARLEY OPERATIVE REPORT DATE OF : 51 REPORT #: [id number] PHYSICIAN: CRISTAL DELEON MD PCP: KAREN BARBOUR MD REPORT IS CONFIDENTIAL AND NOT TO BE RELEASED WITHOUT AUTHORIZATION [facility] [address] [place], [place] [address] Signed length, it was normal. Scope was passed to the stomach which was insufflated with air. There was no sign of bile or blood. Antrum and pylorus appeared normal. Scope was passed through into the duodenum, which was normal. Scope was withdrawn and biopsies then taken of the antrum for both NAOMI and pathologic testing. Retroflexed view did not show bulky submucosal disease, ulceration or neoplasm. Biopsies were taken the mid and upper portions of the stomach as well. The scope was straightened, withdrawn, and ultimately removed. The patient was taken to the recovery room in good condition. CONCLUDING DIAGNOSIS: Grossly normal-appearing stomach. Final results were pending. No sign of change to CLOtest at this time. PLAN: Would recommend repeat upper endoscopy in one year for surveillance on MALT lymphoma, sooner if symptoms. Would recommend continued use of PPI and Carafate. She will return to the ongoing care of Dr. Barbour as well as Dr. Santizo. MD UNIQUE Molina/TALHA /[id number] cc: MD Dr. Aram Rajan Copies: RAYMOND SANTIZO MD ~ Electronically Signed By: CRISTAL DELEON MD 05/27/25 1344 PATIENT NAME: BRENDA REMBERTOFAYE DE JESUS OPERATIVE REPORT DATE OF : 51 REPORT #: [id number] PHYSICIAN: CRISTAL DELEON MD PCP: KAREN BARBOUR MD REPORT IS CONFIDENTIAL AND NOT TO BE RELEASED WITHOUT AUTHORIZATION
--- NOTE | 2025-05-28 10:30 | PATH ---
[facility] [address] [place] [address] Signed THIS IS AN ADDENDUM REPORT SPECIMEN(S): A STOMACH, ANTRUM/PYLORUS BIOPSY SPECIMEN(S): B STOMACH, BODY BIOPSY SPECIMEN(S): C STOMACH, FUNDUS BIOPSY SPECIMEN SOURCE: A. STOMACH, ANTRUM/PYLORUS BIOPSY B. STOMACH, BODY BIOPSY C. STOMACH, FUNDUS BIOPSY CLINICAL HISTORY: Pre: Chronic gastritis; history of gastric cancer; history of lymphoma. Post: Normal-appearing FINAL PATHOLOGIC DIAGNOSIS: A. Antrum/pylorus, biopsies: - Chronic gastritis with focal inflammatory activity, negative for intestinal metaplasia. - No H. pylori bacteria are detected by HE stain. See comment. - No evidence of lymphoma. B. Stomach body, biopsies - Minimal chronic gastritis with vascular congestion, negative for active inflammation or intestinal metaplasia. - No H. pylori bacteria are detected by HE stain. - No evidence of lymphoma. C. Stomach fundus, biopsies - Chronic gastritis with focal inflammatory activity, negative for intestinal metaplasia. - No H. pylori bacteria are detected by HE stain. - No evidence of lymphoma. COMMENT: Immunohistochemical stain for H. pylori will be performed on A1 and reported by addendum. AMB MICROSCOPIC EXAMINATION: Histologic sections of all submitted blocks are examined by light microscopy. These findings, together with the gross examination, support the pathologic diagnosis. PATIENT NAME: BRENDA SRNEALFAYETODD ACEVEDO PATHOLOGY DATE OF : 51 REPORT #: [id number] PHYSICIAN: VICKY PATHOLOGY PCP: CASI BARBOUR MD REPORT IS CONFIDENTIAL AND NOT TO BE RELEASED WITHOUT AUTHORIZATION [facility] [address], [place] [address] Signed GROSS DESCRIPTION: A. The specimen, labeled and designated "[place]ack[place], antrum biopsy," is received in formalin and consists of two cheng soft tissue fragments, ranging from 0.2 cm. Entirely submitted in (A1). B. The specimen, labeled and designated "Mc Cracken, stomach body biopsy," is received in formalin and consists of four cheng soft tissue fragments, ranging from 0.2-0.5 cm. Entirely submitted in (B1). C. The specimen, labeled and designated "Mc Cracken, stomach fundus biopsy," is received in formalin and consists of four cheng soft tissue fragments, ranging from 0.2 cm. Entirely submitted in (C1). JS (under the direct supervision of a pathologist) The Gross Description was prepared using a voice recognition system. The report was reviewed for accuracy; however, sound-alike word errors, addition and/or deletions may occur. If there is any question about this report, please contact Client Services. ADDITIONAL NOTES: Immunohistochemical and/or in situ hybridization studies if performed in this case included appropriate positive controls that reacted as expected. This test was developed and its performance characteristics determined by [facility]. It has not been cleared or approved by the U.S. Food and Drug Administration. The FDA has determined that such clearance or approval is not necessary. This test is used for clinical purposes. It should not be regarded as investigational or for research. [facility] is certified under the Clinical Laboratory Improvement Amendments of 1988 (CLIA) as qualified to perform high complexity clinical laboratory testing. PERFORMING LABORATORY: Technical component was performed by [facility], [address] [place] [id number] (CLIA# [id number]). Professional interpretation was performed by [facility] [address] [place] [phone] [id number] ADDITIONAL NOTES: Immunohistochemical and/or in situ hybridization studies if performed in this case included appropriate positive controls that reacted as expected. This test was developed and its performance characteristics determined by [facility]. It has not been cleared or approved by the U.S. Food and Drug Administration. The FDA has determined that PATIENT NAME: FAYE FARLEY PATHOLOGY DATE OF : 51 REPORT #: [id number] PHYSICIAN: VICKY WILKINSON PCP: CASI BARBOUR MD REPORT IS CONFIDENTIAL AND NOT TO BE RELEASED WITHOUT AUTHORIZATION [address] [address] Signed such clearance or approval is not necessary. This test is used for clinical purposes. It should not be regarded as investigational or for research. [facility] is certified under the Clinical Laboratory Improvement Amendments of 1988 (CLIA) as qualified to perform high complexity clinical laboratory testing. Professional interpretation was performed by [facility] [address] [place] [phone] [id number] REASON FOR ADDENDUM: H. pylori testing by immunohistochemistry on A1 ADDENDUM PATHOLOGIC DIAGNOSIS: A. Antrum/pylorus, H. pylori testing by immunohistochemistry - Negative for organisms. AMB Diagnostician: Catherine Lau MD Pathologist Electronically Signed 05/28/2025 Copies: ~ PATIENT NAME: FAYE FARLEY PATHOLOGY DATE OF : 51 REPORT #: [id number] PHYSICIAN: VICKY WILKINSON PCP: CASI BARBOUR MD REPORT IS CONFIDENTIAL AND NOT TO BE RELEASED WITHOUT AUTHORIZATION
== END 2025-05-23 12:25 | disposition home or self-care (01) ==
LOC: DS 10:32
PROVIDERS: ATTEND Surgery
PROC: 0DB78ZX Excision of Stomach, Pylorus, Via Natural or Artificial Opening Endoscopic, Diagnostic (ICD-10-PCS; principal; 2025-05-23 12:00)
DX: Z12.0 Encounter for screening for malignant neoplasm of stomach (principal); K29.50 Unspecified chronic gastritis without bleeding; I10 Essential (primary) hypertension; E66.9 Obesity, unspecified; Z68.43 Body mass index [BMI] 50.0-59.9, adult; Z85.028 Personal history of other malignant neoplasm of stomach; Z79.899 Other long term (current) drug therapy
CPT/HCPCS: 99153; G0500; J2250; J3010; J7121